=== PATIENT | male | born 1935 | race Two or more races ===

== ENCOUNTER 2024-01-08 03:01 | Emergency (ER) | payer OTHER ==
[~2024-01-08] VITALS: Ht 182.9 cm; Wt 95.3 kg
[~2024-01-08 03:01] MED LIST: COVERSYL; TIAZAC; TYLENOL W-CODEI1 TAB PO
[2024-01-08] MEDS ORDERED: ALLOPURINOL200 MG (03:13)
[2024-01-08] MEDS ORDERED: FINASTERIDE5 MG (03:13)
[2024-01-08] MEDS ORDERED: DILTIAZEM ER120 MG (03:14)
[2024-01-08] MEDS ORDERED: TAMS0.4C (03:14)
[2024-01-08] MEDS ORDERED: [UNRECOGNIZED DRUG - OTHER] (03:22)
[2024-01-08] MEDS ORDERED: HYDROCODONE/CHLORPHEN P-STIREX 5 ML ML PO STA (04:06)
[2024-01-08] MEDS ORDERED: METHYLPREDNISOLONE SOD SUCC 125 MG VIAL IV STA (04:06)
[2024-01-08] MEDS ORDERED: IPRATROPIUM BROMIDE 0.5 MG/2.5 ML AMPUL.NEB IH STA (04:07)
[2024-01-08] MEDS ORDERED: ALBUTEROL SULFATE 3 ML/2.5 MG AMPUL.NEB IH STA (04:07)
[2024-01-08 04:27] LABS: HEMATOCRIT 40.8 % (39.0-48.0); HEMOGLOBIN 13.9 g/dL (13-16.00); MEAN CELL VOLUME 97.6 fL (80.0-100.00); MEAN CORPUSCULAR HEMOGLOBIN 33.1 pg (27.00-32.0); MEAN CORPUSCULAR HGB CONC 33.9 g/dl (32.0-36.0); RED BLOOD COUNT 4.18 M/uL (4.00-6.00); RED CELL DISTRIBUTION WIDTH 14.1 % (11.5-14.5)
[2024-01-08 04:58] LABS: PLATELET COUNT 121 K/uL (150-450)
== END 2024-01-08 06:16 | disposition home or self-care (01) ==
LOC: ER 03:01
DX: J06.9 Acute upper respiratory infection, unspecified (principal); R05.8 Other specified cough; Z20.822 Contact with and (suspected) exposure to COVID-19
CPT/HCPCS: 36415; 71045; 94640; 96365; 99283; J2930

== ENCOUNTER 2024-12-15 07:39 | Outpatient (CLI) | payer OTHER ==
[~2024-12-15 07:39] MED LIST changes: +ALLOPURINOL200 MG; +DILTIAZEM ER120 MG; +FINASTERIDE5 MG; +TAMS0.4C; +[UNRECOGNIZED DRUG - OTHER]
== END 2024-12-15 07:40 | disposition home or self-care (01) ==
LOC: NUCLEAR 07:39
PROVIDERS: ATTEND Internal Medicine
DX: I87.2 Venous insufficiency (chronic) (peripheral) (principal)